=== PATIENT | male | born 1980 | race Caucasian/White ===

== ENCOUNTER 2018-10-06 05:39 | Emergency (ER) | payer MEDICAID, OTHER ==
[~2018-10-06] VITALS: Ht 175.3 cm; Wt 62.3 kg
[2018-10-06 05:46] VITALS: Ht 175.3 cm; Wt 62.3 kg
[2018-10-06] MEDS ORDERED: CIPR500T4 PO (06:15)
[2018-10-06 06:30] VITALS: BP 112/63; PULSE 63; RESP 14
--- NOTE | 2018-10-06 07:06 | ERD ---
ER Documentation Chief Complaint Chief Complaint LEFT EAR WOUND X'S 2 DAYS HPI Patient is a 38-year-old male with no medical problems who presents with a left ear infection. The patient says "I was messing with it". He said that he has had it for the past 2 days. The patient has no pain but those swelling of the ear is worsening. There is some redness and cracked skin around the earlobe. The patient does not of her primary doctor in the area. He has had no treatment as of yet. ROS All systems reviewed and are negative except as per history of present illness. Medications Home Meds Active Scripts Ciprofloxacin Hcl* (Ciprofloxacin Hcl*) 500 Mg Tablet, 500 MG PO BID for 7 Days, TAB Prov:RONAL URBINA MD 10/06/18 Allergies Allergies: Coded Allergies: Penicillins (Verified Allergy, Unknown, 10/06/18) PMhx/Soc Medical and Surgical Hx: pt denies Medical Hx, pt denies Surgical Hx Hx Alcohol Use: Yes Hx Substance Use: Yes Hx Tobacco Use: Yes Smoking Status: Current some day smoker FmHx Family History: No diabetes Physical Exam Vitals Vital Signs Date Temp Pulse Resp B/P (MAP) Pulse Ox O2 O2 Flow FiO2 Time Delivery Rate 10/06/18 63 14 112/63 98 Room Air 06:30 (79) 10/06/18 97.0 67 18 117/76 100 05:46 (90) Physical Exam Const: No acute distress Head: Atraumatic Eyes: Normal Conjunctiva ENT: Normal External Ears, Nose and Mouth. Neck: Full range of motion. No meningismus. Resp: Clear to auscultation bilaterally Cardio: Regular rate and rhythm, no murmurs Abd: Soft, non tender, non distended. 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 The patient will be given a prescription for Cipro. He will need to follow-up with a primary doctor within 1 week. He will be given information for the local clinics. He can return sooner for any worsening symptoms. I do not believe he requires further workup or admission to the hospital at this time. I doubt mastoiditis. I doubt sepsis. Departure Diagnosis: Primary Impression: Otitis externa Otitis externa type: unspecified type Chronicity: acute Laterality: left Qualified Codes: H60.502 - Unspecified acute noninfective otitis externa, left ear Condition: Fair Patient Instructions: External Ear Infection (Adult) Referrals: [facility] YOU HAVE RECEIVED A MEDICAL SCREENING EXAM AND THE RESULTS INDICATE THAT YOU DO NOT HAVE A CONDITION THAT REQUIRES URGENT TREATMENT IN THE EMERGENCY DEPARTMENT. FURTHER EVALUATION AND TREATMENT OF YOUR CONDITION CAN WAIT UNTIL YOU ARE SEEN IN YOUR DOCTORS OFFICE WITHIN THE NEXT 1-2 DAYS. IT IS YOUR RESPONSIBILITY TO MAKE AN APPOINTMENT FOR FOLOW-UP CARE. IF YOU HAVE A PRIMARY DOCTOR --you should call your primary doctor and schedule an appointment IF YOU DO NOT HAVE A PRIMARY DOCTOR YOU CAN CALL OUR PHYSICIAN REFERRAL HOTLINE AT IF YOU CAN NOT AFFORD TO SEE A PHYSICIAN YOU CAN CHOSE FROM THE FOLLOWING [facility] [address] [facility] [address] [facility] [facility] [address] [facility] [address] [facility] [address] [facility]. [facility]. [address] Additional Instructions: Call your primary care doctor TOMORROW for an appointment during the next 1 WEEK.Tell the front office secretary that you were referred from this facility.See the doctor sooner or return here if your condition worsens before your appointment time. RONAL URBINA MD Oct 06, 2018 07:06
== END 2018-10-06 06:30 | disposition home or self-care (01) ==
LOC: E/R 05:39
DX: H60.502 Unspecified acute noninfective otitis externa, left ear (principal); R40.2142 Coma scale, eyes open, spontaneous, at arrival to emergency department; R40.2362 Coma scale, best motor response, obeys commands, at arrival to emergency department; R40.2252 Coma scale, best verbal response, oriented, at arrival to emergency department; F17.210 Nicotine dependence, cigarettes, uncomplicated
CPT/HCPCS: 99283